=== PATIENT | male | born 1985 | race Caucasian/White ===

== ENCOUNTER 2017-03-25 14:21 | Inpatient (IN) | payer SELFPAY ==
[2017-03-25 14:22] VITALS: BP 131/108; PULSE 76; RESP 18; TEMP 36.6; O2SAT 98; BMI 29.5
--- NOTE | 2017-03-25 15:12 | ED.RN ---
PT REPORTS THAT HE NOTICED INFECTION THIS AM. REDDENED AND SWOLLEN. PULSES PRESENT IN BOTH LEGS, STRONG. SENSATION PRESENT.
--- NOTE | 2017-03-25 15:21 | ED.RN ---
PT REQUESTS MEDICATION FOR PAIN. PT LETHARGIC BUT RESPONSIVE, KEEPS EYES CLOSED WHEN SPEAKING TO THIS RN. DR. CHEUNG INFORMED OF PT REQUEST. NO NEW ORDERS AT THIS TIME.
--- NOTE | 2017-03-25 15:22 | ED.DCSUM_ITS ---
- ER Visit Summary Date of Service: 03/25/17 Chief Complaint: Right leg pain History of Present Illness: The patient is a 31 M started with right leg pain 2 days ago. He noticed that it was red below the knee. Hurts to ambulate. He has not had a fever. No history of DVT. Physical Examination: Vital signs reviewed. He is slightly tachycardic. Right lower extremity exam reveals edema and redness below the knee. No tenderness along the deep venous system. His foot is spared with erythema. Test Results: White blood cell count normal. Lactate is pending Emergency Department Course and Treatment: Patient will be treated with Kefzol. I feel he requires admission to the extent of the cellulitis. I spoke with the admitting provider for admission Treatment Plan: [] Disposition: Right lower extremity cellulitis Impression: Admit This note was generated with [employer] dictation software. It may contain incorrect words, spelling, and punctuation that were not noted in review of the chart prior to signing ED Disposition - Plan for ED Patient: Chief Complaint: Cellulitis Referrals: Care Physician,No Primary [Primary Care Provider] -
[2017-03-25 15:31] LABS: Anion Gap 8 (5-15); BUN 5 mg/dL (7-18); BUN/Creat Ratio 6.9 RATIO (10-20); Calcium,Total 8.8 mg/dL (8.5-10.1); Chloride 100 mmol/L (98-107); Creatinine, Serum 0.73 mg/dL (0.70-1.30); EST Glomerular Filtration Rate 134 mL/min (>60); Est Glom Filt Rate - Afr Amer 162 mL/min (>60); Glucose 126 mg/dL (74-106); Potassium 3.3 mmol/L (3.5-5.1); Sodium Level 140 mmol/L (136-145)
[2017-03-25 15:36] LABS: Absolute Lymphocyte Count 1.51 X10^3/ul (0.83-4.51); Absolute Neutrophil Count 7.6 X10^3/uL (2.0-7.7); Basophil# 0.01 X10^3/uL; Basophil% 0.1 % (0-1); Eosinophil# 0.15 X10^3/uL; Eosinophils% 1.5 % (0-5); Hematocrit 40.8 % (40-54); Hemoglobin 13.6 g/dl (13.0-16.5); Lymphocyte # 1.51 X10^3/ul (4.0); Lymphocyte % 14.7 % (19-41); Mean Corp Hgb Conc 33.3 g/gl (32-36); Mean Corpuscular Hgb 28.5 pg (27.0-32.0); Mean Corpuscular Volume 85.5 fL (80-94); Mean Platelet Vol. 10.8 fl (6.2-12.0); Monocyte% 9.8 % (0-10); Neutrophil # 7.57 X10^3/uL (2.7-7.7); Neutrophil % 73.8 % (47-70); POSITIVE COUNT NO; POSITIVE DIFFERENTIAL NO; POSITIVE MORPHOLOGY NO; Platelet Count 267 K/mm3 (150-450); RBC Distribution Width CV 12.9 % (11.6-14.6); RBC Distribution Width SD 40.4 fl (35.1-43.9); Red Blood Count 4.77 M/mm3 (4.6-6.2); White Blood Count 10.3 K/mm3 (4.4-11.0)
[2017-03-25 15:58] LABS: Lactic Acid 1.9 mmol/L (0.4-2.0)
--- NOTE | 2017-03-25 16:24 | PCM.HP.STD ---
Problem List (1) Cellulitis of right leg Status: Acute (2) Altered mental status Status: Acute (3) Papulovesicular rash Status: Acute (4) Polysubstance (excluding opioids) dependence, daily use Status: Chronic History of Present Illness Date of Admission: 03/25/17 Chief Complaint: Right leg cellulitis and altered mental status The patient is a 31 year old M with no significant past medical history came to ER with right leg swelling from knee to ankle along with redness, pain and tenderness suggestive of cellulitis. I was called by ER physician to admit right leg cellulitis but when I saw the patient he was confused, very sleepy with occasional waking up on shaking, mild slurry and red conjunctiva. As per the nursing staff, he was fine before going to bathroom and then was semiconscious. 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 He has a erythematous rash over right leg but also papulovesicular rash on the right hand and forearm and 2 spots on the base of penis. [] Past Medical History Past Medical History (Chronic Problems): Chronic Problems Polysubstance (excluding opioids) dependence, daily use (Chronic) Allergies pertussis vaccine,adsorbed [Pertussis Vaccine,Adsorbed] Adverse Reaction (Verified 03/25/17 14:23) CONFUSED HAD A BABY, ACTED VERY DIFFERENT SPACEY Home Medications: Ambulatory Orders Medication Instructions Recorded NK [NK] 03/25/17 Smoking Status: Current every day smoker - *Family History Paternal History Items: Unknown Review of Systems Unable to obtain accurate/complete ROS d/t: Patient is very sleepy, lethargic and semi-consults VTE Information - Inpt Only VTE Present on Admission: No VTE Mechan Device Prophylaxis: SCD's VTE Pharm Prophylaxis ordered?: Yes Reason prophylaxis not ordered:: Procedure Not Indicated Patient Problems: Active and Suspected Problems Cellulitis of right leg (Acute) Altered mental status (Acute) Papulovesicular rash (Acute) - Physical Exam General: Alert, Oriented x3, Cooperative, Confused, Disoriented, Lethargic, - - Sleepy with occasional waking up on shaking HEENT: Atraumatic, PERRLA, EOMI, Normocephalic, - - Right conjunctiva Oral: Dry Mucosa Neck: Supple, No JVD, Negative Carotid Bruits Lungs: Clear to auscultation, No rhonchi, No wheeze, No rales, Diminished Cardiovascular: Regular rate, Regular Rhythm, Normal S1, Normal S2, No murmurs Abdomen: Bowel Sounds Present, Soft, Non Tender, Non-Distended Extremities: No edema, Capillary Refill Less than 3 Seconds Skin: Rash Present - erythematous rash over right leg but also papulovesicular rash on the right hand and forearm and 2-3 maculo-papular vesicular rash on the base of penis. [] Musculoskeletal: No Tenderness to Palpation of Joints or Extremities Neurological: Cranial nerves II-XII grossly intact Psych/Mental Status: Normal Affect, Appropriate Vital Signs Temp Pulse Resp BP Pulse Ox 97.8 F 76 18 131/108 H 98 03/25/17 14:22 03/25/17 14:22 03/25/17 14:22 03/25/17 14:22 03/25/17 14:22 Oxygen Delivery Method Room Air Weight: 217 lb 9.54 oz Body Mass Index (BMI) 29.5 Laboratory Tests Past 24 Hrs 03/25/17 03/25/17 03/25/17 15:07 15:07 15:07 WBC 10.3 RBC 4.77 Hgb 13.6 Hct 40.8 MCV 85.5 MCH 28.5 MCHC 33.3 RDW 12.9 RDW Differential 40.4 Plt Count 267 MPV 10.8 Immature Gran % (Auto) 0.100 Neut % (Auto) 73.8 H Lymph % (Auto) 14.7 L Hernando % (Auto) 9.8 Eos % (Auto) 1.5 Baso % (Auto) 0.1 Absolute Neuts (auto) 7.6 Absolute Lymphs (auto) 1.51 Total Counted Not Reportable Sodium 140 Potassium 3.3 L Chloride 100 Carbon Dioxide 32.0 Anion Gap 8 BUN 5 L Creatinine 0.73 Estim Creat Clear Calc 162.40 Est GFR (MDRD) Af Amer 162 Est GFR (MDRD) Non-Af 134 BUN/Creatinine Ratio 6.9 L Glucose 126 H Lactic Acid 1.9 Calcium 8.8 Assessment/Plan Active and Suspected Problems Cellulitis of right leg (Acute) Altered mental status (Acute) Papulovesicular rash (Acute) [] The patient is a 31 year old M with no significant past medical history came to ER with right leg swelling from knee to ankle along with redness, pain and tenderness suggestive of cellulitis. I was called by ER physician to admit right leg cellulitis but when I saw the patient he was confused, very sleepy with occasional waking up on shaking, mild slurry and red conjunctiva. As per the nursing staff, he was fine before going to bathroom and then was semiconscious. 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 He has a erythematous rash over right leg but also papulovesicular rash on the right hand and forearm and 2 spots on the base of penis. 1. Altered mental status/acute encephalopathy, etiology unclear but suspect substance/illicit drug use, infectious encephalopathy/viral fever or due to cellulitis: Patient is being admitted on the [facility] floor. U tox, serum alcohol, ESR, CRP ABG and CT head ordered. Discussed with infectious disease Dr. Vallejo and advised HIV, RPR, HSV DNA PCR and zoster IgM ordered. Blood cultures ?2. Wound swab from the vesicular rash for MRSA and HSV. Started empirically on IV vancomycin and Zosyn. 2. Right leg cellulitis from knee to ankle, infectious etiology unclear possible bacterial/tickborne/rickettsial: ID consult as mentioned above. Rest as mentioned above. Venous Doppler ordered. 3. Polysubstance use: Patient admitted that he smokes marijuana but refuses for crack cocaine, benzodiazepine or heroin. He had used heroin in the past. [facility] consult. 4. DVT prophylaxis: On Lovenox 40 mg subcu daily. This note was generated with [email or web address] dictation software. Every effort was made to ensure accuracy, however computerized financial services professional mistakes may persist. Code Visit Inpatient E&M: 25255 Init Hosp L3
[2017-03-25 16:30] VITALS: BP 132/77; PULSE 76; RESP 15; O2SAT 98
[2017-03-25 16:31] VITALS: BMI 29.5
[2017-03-25] MEDS: Cefazolin 1 GM/50 ML BAG IV (16:35)
--- NOTE | 2017-03-25 17:01 | CT_ITS ---
STUDY: CT BRAIN WITHOUT CONTRAST REASON FOR EXAM: Male, 31 years old. Altered mental status and right leg edema. RADIATION DOSAGE (If Supplied By Facility): CTDIvol = ( 44.99 ) mGy, DLP = ( 829.85 ) mGycm TECHNIQUE: Transaxial CT imaging of the brain was performed without administration of intravenous contrast material. Individualized dose optimization techniques were used for this CT. COMPARISON: None. FINDINGS: Normal soft tissue structures. Normal calvarium. There is mild cerebral atrophy with widening of the extra-axial spaces and ventricular dilatation. Normal white matter tracts of the cerebral hemispheres. Normal basal ganglia and thalami. Normal brainstem. Normal cerebellum. There is no intracranial hemorrhage. There are no findings of an acute ischemic infarction. Moderate areas of mucosal thickening in the inferior right maxillary sinus. CT/Brain/Head without Contrast IMPRESSION: No acute intracranial findings. Negative for hemorrhage, hematoma or mass density. Negative for demarcation of a new infarct zone. Mild atrophy for age. Moderate areas of mucosal thickening in the inferior right maxillary sinus. Normal skull. Electronically Signed: Anita Cobb MD at 18:21 EST , Service support ,
[2017-03-25 17:15] VITALS: BMI 28.3
[2017-03-25 18:01] VITALS: BP 130/74; PULSE 111; RESP 16; TEMP 36.9; O2SAT 99
[2017-03-25] MEDS: Naloxone 0.4 MG/ML Syringe IV (18:10)
[2017-03-25 18:11] LABS: Allen Test POS; Base Excess 8 mmol/L (-2 to +2); Blood Gas Specimen Type ART; O2 Delivery Device Room Air; PO2 76 mmHG (75-100); SITE R Brachial; SO2 95 % (95-99); Time Given 1805; Total Carbon Dioxide 33 mmol/L; pCO2 47.2 mmHg (35-45); pH 7.44 (7.35-7.45)
[2017-03-25 18:24] LABS: Prothrombin Time (Protime)PT. 13.2 SECONDS (11.7-14.9)
[2017-03-25 18:25] LABS: Partial Thromboplast Time 40.5 Seconds (24.1-36.2)
[2017-03-25 18:34] LABS: AST(SGOT) 67 U/L (15-37); Alanine Aminotransfer ALT/SGPT 122 U/L (16-61); Albumin, Serum 2.8 g/dL (3.2-5.0); Alkaline Phosphatase 100 U/L (45-117); Bilirubin, Direct 0.09 mg/dL (0.00-0.30); Globulin 3.5 g/dL (2.2-4.2); Protein, Total 6.3 g/dL (6.4-8.2)
[2017-03-25 18:35] LABS: Erythrocyte Sedimentation Rate 18 mm/hr (0-15)
[2017-03-25 18:44] LABS: Amphetamine Urine VISTA POSITIVE (<1000 ng/mL); Barbiturate Urine VISTA NEGATIVE (< 200 ng/mL); Benzodiazepine Urine VISTA NEGATIVE (< 200 ng/mL); Cocaine Urine VISTA NEGATIVE (< 300 ng/mL); Ecstacy Urine VISTA POSITIVE (< 500 ng/mL); Methadone Urine VISTA NEGATIVE (< 300 ng/mL); PCP Urine VISTA NEGATIVE (< 25 ng/mL); THC Urine VISTA NEGATIVE (< 50 ng/mL); Vista UDS pH Range 7
[2017-03-25 18:47] LABS: Alcohol, Blood (Medical)-Serum < 3.0 mg/dL
[2017-03-25] MEDS: 0.9% Normal Saline 1,000 ML 150 ML IV (19:49)
[2017-03-25 19:51] LABS: HIV - WCH Non-Reactive (Nonreactive)
[2017-03-25 19:56] VITALS: BP 126/76; PULSE 97; RESP 16; TEMP 37.1; O2SAT 98
[2017-03-25 20:17] LABS: M R Staph aureus DNA By PCR Negative (Negative); Probe Check PASS; Specimen Processing Control PASS; Staph aureus DNA By PCR NEGATIVE (Negative)
[2017-03-25] MEDS: Acyclovir 750 MG in Dextrose 5% 250 ML 256 MG IV (22:47)
[2017-03-26] MEDS: Piperacil/Tazobactam 3.375 GM/50 ML ML IV ×4 (00:15→21:24)
[2017-03-26 02:47] VITALS: BP 117/70; PULSE 85; RESP 16; TEMP 36.6; O2SAT 100
[2017-03-26] MEDS: Acyclovir 750 MG in Dextrose 5% 250 ML 256 MG IV ×3 (06:21→21:23)
--- NOTE | 2017-03-26 09:24 | PCM.PN.HOSP ---
Patient Problems: Active and Suspected Problems Cellulitis of right leg (Acute) Altered mental status (Acute) Papulovesicular rash (Acute) Subjective: Patient with no acute events per night per self however per review of nursing notes patient upon admission with suspected drug abuse while in the emergency room as mental status had declined following initial ED evaluation with lethargy as well as slurred speech with UDS remarkable admitted ongoing drug usage per patient. Reviewed current status with patient and he does admit to unprotected sex as possible etiology for penile lesions more consistent with warts and denies any LE scratching, even while on drugs. He notes ongoing discomfort to the RLE but otherwise no complaints. Patient denies fevers, chills, nausea, emesis, abdominal pain, chest pain or dyspnea. Objective: Physical Examination: General: awake, alert, oriented x 3 and cooperative, seated upright in bed in no apparent distress. Skin: normal color, turgor, no icterus, cyanosis except several extremity tattoos, per-penile bases lesions, appears more consistent with genital warts, RLE w/ no obvious blisters or lesions, scratches noted, erythema from ankle to mid calf, receding from outline marked prior, TTP, warm to touch. HEENT: AT/NC, EOMI, PERRLA, MMM. Lungs: CTA bilaterally, moderate effort, mild decrease BL bases, no rales, ronchi or wheezing. Heart: regular rate and rhythm; no gallop, rub audible. Abdomen: soft, NTTP, ND, normal BS. Extremities: no cyanosis, clubbing, see skin, RLE w/ mild edema. Neurological: patient awake, alert, oriented x 3; cognitive function intact; pupils equally reactive to light and accomodation; cranial nerves II-XII grossly normal, moving all 4 extremities, no focal deficits, strength mildly globally decreased secondary to acute presentation. Psychiatric: affect appears normal, no acute evidence of depressive or anxiety feelings. Vitals/I&O's: Vital Signs Temp Pulse Resp BP Pulse Ox 98 F 85 16 117/70 100 03/26/17 02:47 03/26/17 02:47 03/26/17 02:47 03/26/17 02:47 03/26/17 02:47 Oxygen Delivery Method Room Air Weight: 208 lb 15.971 oz Body Mass Index (BMI) 28.3 Intake and Output for Last 24 Hours 03/24/17 03/25/17 03/26/17 23:59 23:59 23:59 Intake Total 2675 / 2675 Output Total 850 / 850 Balance 1825 / 1825 Laboratory Results 03/25/17 18:04: Specimen Type ART, Sample Site R Brachial, pH 7.44, Bicarbonate Actual 32.0 H, POC Total CO2 33, Base Excess 8 H, O2 Saturation 95, ABG pCO2 47.2 H, ABG pO2 76, Sorin Test POS, O2 Delivery Device Room Air, Blood Gas Notified Whom [facility] , Blood Gas Notified Time 1805 03/25/17 18:05: Ethyl Alcohol < 3.0 03/25/17 18:05: ESR 18 H 03/25/17 18:05: PT 13.2, INR 1.0, APTT 40.5 H 03/25/17 18:05: Total Bilirubin 0.30, Direct Bilirubin 0.09, AST 67 H, ALT 122 H, Alkaline Phosphatase 100, C-React Prot Ext Range 89.20 H, Total Protein 6.3 L, Albumin 2.8 L, Globulin 3.5 03/25/17 18:05: HIV 1&2 Antibody Non-Reactive 03/25/17 18:05: RPR Pending 03/25/17 18:15: Urine Opiates Screen POSITIVE H, Urine Methadone Screen NEGATIVE, Ur Barbiturates Screen NEGATIVE, Ur Phencyclidine Scrn NEGATIVE, Ur Amphetamines Screen POSITIVE H, U Methamphetamin-MDMA POSITIVE H, U Benzodiazepines Scrn NEGATIVE, Urine Cocaine Screen NEGATIVE, U Cannabinoids Screen NEGATIVE, Ur Drug Screen Comment 03/25/17 18:20: S.aureus Protein A PCR NEGATIVE, MRSA (PCR) Negative Current Medications Acetaminophen (Tylenol) 650 mg PO Q6H PRN PRN PRN Reason: Mild Pain (scale 0-3)/T>100.7 Bisacodyl (Dulcolax) 10 mg RECTAL DAILY PRN PRN PRN Reason: Constipation Docusate Sodium (Colace) 200 mg PO BID PRN PRN PRN Reason: Constipation Sodium Chloride () 1,000 mls @ 150 mls/hr IV .Q6H40M OLYA Last Admin: 03/26/17 07:42 Dose: Not Given Piperacillin Sod/Tazobactam Sod (Zosyn) 3.375 gm in 50 mls @ 12.5 mls/hr IV Q8 [facility] Last Admin: 03/26/17 06:20 Dose: 12.5 mls/hr Vancomycin HCl 1,500 mg/ (Sodium Chloride) 530 mls @ 250 mls/hr IV Q8H [facility] Last Admin: 03/26/17 03:37 Dose: 250 mls/hr Acyclovir Sodium 750 mg/ (Dextrose) 265 mls @ 256 mls/hr IV Q8 [facility] Last Admin: 03/26/17 06:21 Dose: 256 mls/hr Ondansetron HCl (Zofran) 4 mg IV Q8H PRN PRN PRN Reason: Nausea Oxycodone HCl (Oxyir) 5 mg PO Q4H PRN PRN PRN Reason: Moderate Pain (pain scale 4-5) Sodium Chloride () 5 - 30 ml IV UD PRN PRN Reason: SALINE FLUSH Assessment/Plan Active and Suspected Problems Cellulitis of right leg (Acute) Altered mental status (Acute) Papulovesicular rash (Acute) The patient is a 31 y/o M w/ PMHx: Polysubstance Abuse, Tobacco use who presents to the [facility] ED on 03/25/17 with history of onset RLE edema, redness, pain with onset over the last 24-48 hours although timeline unclear with patient ED evaluation initially appropriate and following visit to restroom onset sluggish sedate behavior with suspected drug usage while in the ED with notable UDS. (1) RLE Extremity Cellulitis: Given polysubstance abuse history and possible vesicles upon initial presentation, ID consulted, maintained on IV vanc, zosyn and acyclovir pending cultures, plan repeat CBC in AM, continue affected extremity elevation above heart when seated and in bed, monitor erythema outline with VS checks, RLE DVT US obtained and preliminary read negative for acute DVT. CRP 89.20. (2) Penile Lesions and LUE ? Vesicular Lesions, Unclear Specific Etiology: Notes unsafe sexual practices, lesions per report cultured although upon re-examination appear more consistent with warts, LUE HSV culture pending as well as LUE wound culture, preliminary without growth, final pending. Maintained as noted on BSA w/ IV vanc, zosyn and acyclovir until cultures result per ID recommendation. HIV NR. RPR, HSV and VZV pending. MRSA, Staph negative on LUE culture. CRP 89.20. (3) Hyperglycemia: Admission glucose 126, likely stress, HgbA1c obtained, 5.4%. (4) Tobacco Abuse: Encouraged cessation, inpatient consultation per RT, NR if desired. (5) Polysubstance Abuse, IVDA Hx: HIV NR, RPR pending, will add hepatitis panel. Encouraged clean status. UDS notable upon admission w/ opiates, amphetamines, methamphetamines. (6) DVT Prophylaxis: TEDs, low risk, ambulation. Code Visit Inpatient E&M: 86291 Subs Hosp L2
[2017-03-26] MEDS: 0.9% Normal Saline 1,000 ML 150 ML IV (09:54)
[2017-03-26 10:00] VITALS: BP 137/79; PULSE 97; RESP 16; TEMP 36.8; O2SAT 99
--- NOTE | 2017-03-26 10:01 | VDLE_ITS ---
Reason For Study: RLE Swelling RIGHT GSV is normal. CFV is compressible, spontaneous, phasic, competent and demonstrates normal augmentation. FV is compressible, spontaneous, phasic, competent and demonstrates normal augmentation. POP V is compressible, spontaneous, phasic, competent and demonstrates normal augmentation. T/P Trunk is compressible. PTV is compressible. RT PerV is compressible. Procedure Exam performed portable in patient room. A preliminary report was called and/or faxed to Alejandra ALMAGUER. Interpretation Summary Deep veins of the right lower extremity are patent and compressible segmentally. There is no evidence of right lower extremity deep vein thrombosis. Valvular competence appears intact within the proximal deep venous system on the right . The right greater saphenous vein appears patent and compressible segmentally. Ordering Physician: Keila Corona Performed By: Alexia Munguia, RONNY, RVT
[2017-03-26 11:36] LABS: Hemoglobin A1c 5.4 % (4.2-6.3)
[2017-03-26 11:52] LABS: Vancomycin, Trough Level 8.1 ug/mL (5.0-15.0)
[2017-03-26 14:20] VITALS: BP 143/79; PULSE 94; RESP 16; TEMP 36.7; O2SAT 98
[2017-03-26] MEDS: Acetaminophen 325 MG Tablet 650 MG PO (14:25)
--- NOTE | 2017-03-26 14:38 | CASEMGMT ---
Referral received d/t pt's self-pay status. Met with pt and introduced self, role, and purpose of visit. Pt voiced belief that he may have health coverage through [employer] or something. When asked whether pt had applied for coverage under the [employer], he was uncertain but expressed he thought perhaps he had. He denied taking any routine prescription medications and was unable to say whether any recent prescriptions had been filled with a prescription drug benefit. 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 He refused this worker's offer to contact [employer] on his behalf to clarify his insurance status. He denied any needs from this worker and asked when he could go home. Explained that at this time discharge has not yet been ordered. Pt was noted with restlessness during this worker's visit AEB: frequent position changes, taking off and replacing a knit cap on his head, no eye contact. Again attempted to identify with pt any homegoing needs; pt denied.
[2017-03-26 21:16] VITALS: BP 116/55; PULSE 78; RESP 16; TEMP 36.8; O2SAT 98
[2017-03-27] MEDS: 0.9% Normal Saline 1,000 ML 150 ML IV ×3 (00:09→22:02)
[2017-03-27 03:00] VITALS: BP 130/73; PULSE 76; RESP 16; TEMP 36.8; O2SAT 100
[2017-03-27] MEDS: Acetaminophen 325 MG Tablet 650 MG PO ×3 (03:08→20:06)
[2017-03-27] MEDS: Acyclovir 750 MG in Dextrose 5% 250 ML 256 MG IV (06:01)
[2017-03-27] MEDS: Piperacil/Tazobactam 3.375 GM/50 ML ML IV ×3 (06:01→21:59)
[2017-03-27 06:59] LABS: Absolute Lymphocyte Count 1.54 X10^3/ul (0.83-4.51); Absolute Neutrophil Count 5.9 X10^3/uL (2.0-7.7); Basophil# 0.02 X10^3/uL; Basophil% 0.2 % (0-1); Eosinophil# 0.16 X10^3/uL; Eosinophils% 1.9 % (0-5); Hemoglobin 14.2 g/dl (13.0-16.5); Lymphocyte # 1.54 X10^3/ul (4.0); Lymphocyte % 18.1 % (19-41); Mean Corpuscular Hgb 28.6 pg (27.0-32.0); Mean Corpuscular Volume 86.5 fL (80-94); Mean Platelet Vol. 10.7 fl (6.2-12.0); Monocyte# 0.84 X10^3/uL; Monocyte% 9.9 % (0-10); Neutrophil # 5.92 X10^3/uL (2.7-7.7); Neutrophil % 69.5 % (47-70); Platelet Count 307 K/mm3 (150-450); RBC Distribution Width SD 41.3 fl (35.1-43.9); Red Blood Count 4.97 M/mm3 (4.6-6.2); White Blood Count 8.5 K/mm3 (4.4-11.0)
[2017-03-27 07:10] LABS: POSITIVE COUNT NO; POSITIVE DIFFERENTIAL NO; POSITIVE MORPHOLOGY NO
[2017-03-27 07:15] LABS: ALB/GLOB Ratio 0.8 RATIO (0.9-2.4); AST(SGOT) 68 U/L (15-37); Alanine Aminotransfer ALT/SGPT 126 U/L (16-61); Albumin, Serum 2.8 g/dL (3.2-5.0); Alkaline Phosphatase 97 U/L (45-117); Anion Gap 8 (5-15); BUN 3 mg/dL (7-18); BUN/Creat Ratio 4.5 RATIO (10-20); Calcium,Total 8.7 mg/dL (8.5-10.1); Chloride 103 mmol/L (98-107); Creatinine, Serum 0.66 mg/dL (0.70-1.30); EST Glomerular Filtration Rate 149 mL/min (>60); Est Glom Filt Rate - Afr Amer 180 mL/min (>60); Estimated Creatinine Clearance 179.63 ml/min; Globulin 3.3 g/dL (2.2-4.2); Glucose 97 mg/dL (74-106); Potassium 4.5 mmol/L (3.5-5.1); Protein, Total 6.1 g/dL (6.4-8.2); Sodium Level 140 mmol/L (136-145)
--- NOTE | 2017-03-27 08:20 | PCM.PN.HOSP ---
Patient Problems: Active and Suspected Problems Cellulitis of right leg (Acute) Altered mental status (Acute) Papulovesicular rash (Acute) Subjective: The patient is a 31 y/o M w/ PMHx: Polysubstance Abuse, Tobacco use who presents to the [facility] ED on 03/25/17 with history of onset RLE edema, redness, pain with onset over the last 24-48 hours although timeline unclear with patient ED evaluation initially appropriate and following visit to restroom onset sluggish sedate behavior with suspected drug usage while in the ED with notable UDS. Given polysubstance abuse history and possible vesicles upon initial presentation, ID consulted, maintained on IV vanc, zosyn and acyclovir pending cultures, plan repeat CBC in AM, continue affected extremity elevation above heart when seated and in bed, monitor erythema outline with VS checks, RLE DVT US obtained and preliminary read negative for acute DVT. CRP 89.20. 03/27/17 given shortage, transition to oral acyclovir with pending cultures, lower suspicion based on appearance of lesions, but to be cautious per ID recommendation will continue. Erythema to the RLE improved, but still present, continue aggressive BSA per ID recommendation with repeat ID evaluation in AM 03/28/17. 03/27/17 CRP and ESR pending to see if trending down. Penile Lesions and LUE ? Vesicular Lesions, Unclear Specific Etiology w/ noted unsafe sexual practices, lesions per report cultured although upon re-examination appear more consistent with warts, LUE HSV culture pending as well as LUE wound culture, preliminary without growth, final pending. Maintained as noted on BSA w/ IV vanc, zosyn and acyclovir until cultures result per ID recommendation. HIV NR. RPR, HSV and VZV pending. MRSA, Staph negative on LUE culture. Polysubstance Abuse, IVDA Hx w/ Elevated LFTs, Likely Chronic, AST/ALT 67/122-->03/27/17 AST/ALT 68/126, stable, likely chronic, pending hepatitis panel. Will obtain liver US additionally. Encouraged clean status. UDS notable upon admission w/ opiates, amphetamines, methamphetamines. Patient with no acute events overnight per self and per nursing report. Patient continues to have discomfort to the right lower extremity and erythema although this is improved since initial presentation. Original lesions on the left upper extremity that were cultured and noted to initially be vesicular appearing are crusted over and do not appear consistent with a herpetic lesion however these cultures are still pending. Discussed plan with patient and given blood culture still pending, continue erythema to the right leg although improving continued on broad-spectrum antibiotic therapy as well as antivirals per infectious disease recommendation. DVT ultrasound obtained today prior to the right lower extremity and preliminary read negative for thrombosis. Per patient following hospitalization will be going to senior care. Patient denies fevers, chills, nausea, emesis, abdominal pain, chest pain or dyspnea. Objective: Physical Examination: General: awake, alert, oriented x 3 and cooperative, seated upright in bed in no apparent distress. Skin: normal color, turgor, no icterus, cyanosis except several extremity tattoos, per-penile bases lesions, appears more consistent with genital warts, RLE w/ no obvious blisters or lesions, scratches noted, erythema from ankle to mid calf, receding from outline marked prior but still present and still warm as well as tender upon palpation, no purulent drainage onset from any of the abrasions on the RLE, lesions which were noted vesicular to the LUE forearm healing, not yellow crusting present. HEENT: AT/NC, EOMI, PERRLA, MMM. Lungs: CTA bilaterally, moderate effort, mild decrease BL bases, no rales, ronchi or wheezing. Heart: regular rate and rhythm; no gallop, rub audible. Abdomen: soft, NTTP, ND, normal BS. Extremities: no cyanosis, clubbing, see skin, RLE w/ mild edema. Neurological: patient awake, alert, oriented x 3; cognitive function intact; pupils equally reactive to light and accomodation; cranial nerves II-XII grossly normal, moving all 4 extremities, no focal deficits, strength improved, mildly globally decreased secondary to acute presentation. Psychiatric: affect appears normal, no acute evidence of depressive or anxiety feelings. Vitals/I&O's: Vital Signs Temp Pulse Resp BP Pulse Ox 98.2 F 76 16 130/73 H 100 03/27/17 03:00 03/27/17 03:00 03/27/17 03:00 03/27/17 03:00 03/27/17 03:00 Oxygen Delivery Method Room Air Weight: 208 lb 15.971 oz Body Mass Index (BMI) 28.3 Intake and Output for Last 24 Hours 03/25/17 03/26/17 03/27/17 23:59 23:59 23:59 Intake Total 6393 / 6393 3389 / 3389 Output Total 4000 / 4000 1999 / 1999 Balance 2393 / 2393 1389 / 1389 Microbiology Past 72 Hours 03/25/17 18:20 Wound - Arm Left Gram Stain - Final 03/25/17 18:20 Wound - Arm Left Wound Culture - Preliminary No growth-Final to follow Laboratory Results 03/26/17 10:30: Hemoglobin A1c 5.4 03/26/17 10:30: Herpes Simplex Culture Pending, HSV I DNA PCR Pending, HSV II DNA PCR Pending, HSV Final Result Pending, VZV IgM Antibody Pending 03/26/17 10:30: Vancomycin Trough 8.1 03/27/17 05:45: Hemoglobin A1c Pending 03/27/17 05:45: Hepatitis A IgM Ab Pending, Hepatitis A Ab Total Pending, Hep Bs Antigen Pending, Hep B Core Total Ab Pending, Hep B Core IgM Ab Pending, Hepatitis C Comment Pending 03/27/17 05:45: WBC 8.5, RBC 4.97, Hgb 14.2, Hct 43.0, MCV 86.5, MCH 28.6, MCHC 33.0, RDW 13.0, RDW Differential 41.3, Plt Count 307, MPV 10.7, Immature Gran % (Auto) 0.400, Neut % (Auto) 69.5, Lymph % (Auto) 18.1 L, [place] % (Auto) 9.9, Eos % (Auto) 1.9, Baso % (Auto) 0.2, Absolute Neuts (auto) 5.9, Absolute Lymphs (auto) 1.54, Total Counted Not Reportable 03/27/17 05:45: Sodium 140, Potassium 4.5, Chloride 103, Carbon Dioxide 29.0, Anion Gap 8, BUN 3 L, Creatinine 0.66 L, Estim Creat Clear Calc 179.63, Est GFR (MDRD) Af Amer 180, Est GFR (MDRD) Non-Af 149, BUN/Creatinine Ratio 4.5 L, Glucose 97, Calcium 8.7, Total Bilirubin 0.30, AST 68 H, ALT 126 H, Alkaline Phosphatase 97, Total Protein 6.1 L, Albumin 2.8 L, Globulin 3.3, Albumin/Globulin Ratio 0.8 L Current Medications Acetaminophen (Tylenol) 650 mg PO Q6H PRN PRN PRN Reason: Mild Pain (scale 0-3)/T>100.7 Last Admin: 03/27/17 03:08 Dose: 650 mg Acyclovir (Zovirax) 400 mg PO 5X/DAY [facility] Bisacodyl (Dulcolax) 10 mg RECTAL DAILY PRN PRN PRN Reason: Constipation Docusate Sodium (Colace) 200 mg PO BID PRN PRN PRN Reason: Constipation Sodium Chloride () 1,000 mls @ 150 mls/hr IV .Q6H40M [facility] Last Admin: 03/27/17 00:09 Dose: 150 mls/hr Piperacillin Sod/Tazobactam Sod (Zosyn) 3.375 gm in 50 mls @ 12.5 mls/hr IV Q8 [facility] Last Admin: 03/27/17 06:01 Dose: 12.5 mls/hr Vancomycin HCl 1,500 mg/ (Sodium Chloride) 530 mls @ 250 mls/hr IV Q8H [facility] Last Admin: 03/27/17 02:59 Dose: 250 mls/hr Ondansetron HCl (Zofran) 4 mg IV Q8H PRN PRN PRN Reason: Nausea Oxycodone HCl (Oxyir) 5 mg PO Q4H PRN PRN PRN Reason: Moderate Pain (pain scale 4-5) Sodium Chloride () 5 - 30 ml IV UD PRN PRN Reason: SALINE FLUSH Assessment/Plan Active and Suspected Problems Cellulitis of right leg (Acute) Altered mental status (Acute) Papulovesicular rash (Acute) The patient is a 31 y/o M w/ PMHx: Polysubstance Abuse, Tobacco use who presents to the [facility] ED on 03/25/17 with history of onset RLE edema, redness, pain with onset over the last 24-48 hours although timeline unclear with patient ED evaluation initially appropriate and following visit to restroom onset sluggish sedate behavior with suspected drug usage while in the ED with notable UDS. (1) RLE Extremity Cellulitis: Given polysubstance abuse history and possible vesicles upon initial presentation, ID consulted, maintained on IV vanc, zosyn and acyclovir pending cultures, plan repeat CBC in AM, continue affected extremity elevation above heart when seated and in bed, monitor erythema outline with VS checks, RLE DVT US obtained and preliminary read negative for acute DVT. CRP 89.20. 03/27/17 given shortage, transition to oral acyclovir with pending cultures, lower suspicion based on appearance of lesions, but to be cautious per ID recommendation will continue. Erythema to the RLE improved, but still present, continue aggressive BSA per ID recommendation with repeat ID evaluation in AM 03/28/17. 03/27/17 CRP and ESR pending to see if trending down. (2) Penile Lesions and LUE ? Vesicular Lesions, Unclear Specific Etiology: Notes unsafe sexual practices, lesions per report cultured although upon re-examination appear more consistent with warts, LUE HSV culture pending as well as LUE wound culture, preliminary without growth, final pending. Maintained as noted on BSA w/ IV vanc, zosyn and acyclovir until cultures result per ID recommendation. HIV NR. RPR, HSV and VZV pending. MRSA, Staph negative on LUE culture. CRP 89.20. (3) Hyperglycemia: Admission glucose 126, likely stress, HgbA1c obtained, 5.4%. (4) Tobacco Abuse: Encouraged cessation, inpatient consultation per RT, NR if desired. (5) Polysubstance Abuse, IVDA Hx w/ Elevated LFTs, Likely Chronic: HIV NR, RPR pending, AST/ALT 67/122-->03/27/17 AST/ALT 68/126, stable, likely chronic, pending hepatitis panel. Will obtain liver US additionally. Encouraged clean status. UDS notable upon admission w/ opiates, amphetamines, methamphetamines. (6) DVT Prophylaxis: TEDs, low risk, ambulation. Code Visit Inpatient E&M: 82290 Subs Hosp L2
--- NOTE | 2017-03-27 08:27 | PN_ITS ---
Patient Problems: Active and Suspected Problems Cellulitis of right leg (Acute) Altered mental status (Acute) Papulovesicular rash (Acute) Subjective: The patient is a 31 y/o M w/ PMHx: Polysubstance Abuse, Tobacco use who presents to the [facility] ED on 03/25/17 with history of onset RLE edema, redness, pain with onset over the last 24-48 hours although timeline unclear with patient ED evaluation initially appropriate and following visit to restroom onset sluggish sedate behavior with suspected drug usage while in the ED with notable UDS. Given polysubstance abuse history and possible vesicles upon initial presentation, ID consulted, maintained on IV vanc, zosyn and acyclovir pending cultures, plan repeat CBC in AM, continue affected extremity elevation above heart when seated and in bed, monitor erythema outline with VS checks, RLE DVT US obtained and preliminary read negative for acute DVT. CRP 89.20. 03/27/17 given shortage, transition to oral acyclovir with pending cultures, lower suspicion based on appearance of lesions, but to be cautious per ID recommendation will continue. Erythema to the RLE improved, but still present, continue aggressive BSA per ID recommendation with repeat ID evaluation in AM 03/28/17. 03/27/17 CRP and ESR pending to see if trending down. Penile Lesions and LUE ? Vesicular Lesions, Unclear Specific Etiology w/ noted unsafe sexual practices, lesions per report cultured although upon re-examination appear more consistent with warts, LUE HSV culture pending as well as LUE wound culture, preliminary without growth, final pending. Maintained as noted on BSA w/ IV vanc , zosyn and acyclovir until cultures result per ID recommendation. HIV NR. RPR, HSV and VZV pending. MRSA, Staph negative on LUE culture. Polysubstance Abuse, IVDA Hx w/ Elevated LFTs, Likely Chronic, AST/ALT 67/122-->03/27/17 AST/ALT 68/126 , stable, likely chronic, pending hepatitis panel. Will obtain liver US additionally. Encouraged clean status. UDS notable upon admission w/ opiates, amphetamines, methamphetamines. Patient with no acute events overnight per self and per nursing report. Patient continues to have discomfort to the right lower extremity and erythema although this is improved since initial presentation. Original lesions on the left upper extremity that were cultured and noted to initially be vesicular appearing are crusted over and do not appear consistent with a herpetic lesion however these cultures are still pending. Discussed plan with patient and given blood culture still pending, continue erythema to the right leg although improving continued on broad-spectrum antibiotic therapy as well as antivirals per infectious disease recommendation. DVT ultrasound obtained today prior to the right lower extremity and preliminary read negative for thrombosis. Per patient following hospitalization will be going to skilled nursing. Patient denies fevers, chills, nausea, emesis, abdominal pain, chest pain or dyspnea. Objective: Physical Examination: General: awake, alert, oriented x 3 and cooperative, seated upright in bed in no apparent distress. Skin: normal color, turgor, no icterus, cyanosis except several extremity tattoos, per-penile bases lesions, appears more consistent with genital warts, RLE w/ no obvious blisters or lesions, scratches noted, erythema from ankle to mid calf, receding from outline marked prior but still present and still warm as well as tender upon palpation, no purulent drainage onset from any of the abrasions on the RLE, lesions which were noted vesicular to the LUE forearm healing, not yellow crusting present. HEENT: AT/NC, EOMI, PERRLA, MMM. Lungs: CTA bilaterally, moderate effort, mild decrease BL bases, no rales, ronchi or wheezing. Heart: regular rate and rhythm; no gallop, rub audible. Abdomen: soft, NTTP, ND, normal BS. Extremities: no cyanosis, clubbing, see skin, RLE w/ mild edema. Neurological: patient awake, alert, oriented x 3; cognitive function intact; pupils equally reactive to light and accomodation; cranial nerves II-XII grossly normal, moving all 4 extremities, no focal deficits, strength improved, mildly globally decreased secondary to acute presentation. Psychiatric: affect appears normal, no acute evidence of depressive or anxiety feelings. Vitals/I&O's: Vital Signs Temp Pulse Resp BP Pulse Ox 98.2 F 76 16 130/73 H 100 03/27/17 03:00 03/27/17 03:00 03/27/17 03:00 03/27/17 03:00 03/27/17 03:00 Oxygen Delivery Method Room Air Weight: 208 lb 15.971 oz Body Mass Index (BMI) 28.3 Intake and Output for Last 24 Hours 03/25/17 03/26/17 03/27/17 23:59 23:59 23:59 Intake Total 6393 / 6393 3389 / 3389 Output Total 4000 / 4000 1999 / 1999 Balance 2393 / 2393 1389 / 1389 Microbiology Past 72 Hours 03/25/17 18:20 Wound - Arm Left Gram Stain - Final 03/25/17 18:20 Wound - Arm Left Wound Culture - Preliminary No growth-Final to follow Laboratory Results 03/26/17 10:30: Hemoglobin A1c 5.4 03/26/17 10:30: Herpes Simplex Culture Pending, HSV I DNA PCR Pending, HSV II DNA PCR Pending, HSV Final Result Pending, VZV IgM Antibody Pending 03/26/17 10:30: Vancomycin Trough 8.1 03/27/17 05:45: Hemoglobin A1c Pending 03/27/17 05:45: Hepatitis A IgM Ab Pending, Hepatitis A Ab Total Pending, Hep Bs Antigen Pending, Hep B Core Total Ab Pending, Hep B Core IgM Ab Pending, Hepatitis C Comment Pending 03/27/17 05:45: WBC 8.5, RBC 4.97, Hgb 14.2, Hct 43.0, MCV 86.5, MCH 28.6, MCHC 33.0, RDW 13.0, RDW Differential 41.3, Plt Count 307, MPV 10.7, Immature Gran % (Auto) 0.400, Neut % (Auto) 69.5, Lymph % (Auto) 18.1 L, [place] % (Auto) 9.9, Eos % (Auto) 1.9, Baso % (Auto) 0.2, Absolute Neuts (auto) 5.9, Absolute Lymphs ( auto) 1.54, Total Counted Not Reportable 03/27/17 05:45: Sodium 140, Potassium 4.5, Chloride 103, Carbon Dioxide 29.0, Anion Gap 8, BUN 3 L, Creatinine 0.66 L, Estim Creat Clear Calc 179.63, Est GFR (MDRD) Af Amer 180, Est GFR (MDRD) Non-Af 149, BUN/Creatinine Ratio 4.5 L, Glucose 97, Calcium 8.7, Total Bilirubin 0.30, AST 68 H, ALT 126 H, Alkaline Phosphatase 97, Total Protein 6.1 L, Albumin 2.8 L, Globulin 3.3, Albumin/ Globulin Ratio 0.8 L Current Medications Acetaminophen (Tylenol) 650 mg PO Q6H PRN PRN PRN Reason: Mild Pain (scale 0-3)/T>100.7 Last Admin: 03/27/17 03:08 Dose: 650 mg Acyclovir (Zovirax) 400 mg PO 5X/DAY [facility] Bisacodyl (Dulcolax) 10 mg RECTAL DAILY PRN PRN PRN Reason: Constipation Docusate Sodium (Colace) 200 mg PO BID PRN PRN PRN Reason: Constipation Sodium Chloride () 1,000 mls @ 150 mls/hr IV .Q6H40M [facility] Last Admin: 03/27/17 00:09 Dose: 150 mls/hr Piperacillin Sod/Tazobactam Sod (Zosyn) 3.375 gm in 50 mls @ 12.5 mls/hr IV Q8 [facility] Last Admin: 03/27/17 06:01 Dose: 12.5 mls/hr Vancomycin HCl 1,500 mg/ (Sodium Chloride) 530 mls @ 250 mls/hr IV Q8H [facility] Last Admin: 03/27/17 02:59 Dose: 250 mls/hr Ondansetron HCl (Zofran) 4 mg IV Q8H PRN PRN PRN Reason: Nausea Oxycodone HCl (Oxyir) 5 mg PO Q4H PRN PRN PRN Reason: Moderate Pain (pain scale 4-5) Sodium Chloride () 5 - 30 ml IV UD PRN PRN Reason: SALINE FLUSH Assessment/Plan Active and Suspected Problems Cellulitis of right leg (Acute) Altered mental status (Acute) Papulovesicular rash (Acute) The patient is a 31 y/o M w/ PMHx: Polysubstance Abuse, Tobacco use who presents to the [facility] ED on 03/25/17 with history of onset RLE edema, redness, pain with onset over the last 24-48 hours although timeline unclear with patient ED evaluation initially appropriate and following visit to restroom onset sluggish sedate behavior with suspected drug usage while in the ED with notable UDS. (1) RLE Extremity Cellulitis: Given polysubstance abuse history and possible vesicles upon initial presentation, ID consulted, maintained on IV vanc, zosyn and acyclovir pending cultures, plan repeat CBC in AM, continue affected extremity elevation above heart when seated and in bed, monitor erythema outline with VS checks, RLE DVT US obtained and preliminary read negative for acute DVT. CRP 89.20. 03/27/17 given shortage, transition to oral acyclovir with pending cultures, lower suspicion based on appearance of lesions, but to be cautious per ID recommendation will continue. Erythema to the RLE improved, but still present, continue aggressive BSA per ID recommendation with repeat ID evaluation in AM 03/28/17. 03/27/17 CRP and ESR pending to see if trending down. (2) Penile Lesions and LUE ? Vesicular Lesions, Unclear Specific Etiology: Notes unsafe sexual practices, lesions per report cultured although upon re- examination appear more consistent with warts, LUE HSV culture pending as well as LUE wound culture, preliminary without growth, final pending. Maintained as noted on BSA w/ IV vanc, zosyn and acyclovir until cultures result per ID recommendation. HIV NR. RPR, HSV and VZV pending. MRSA, Staph negative on LUE culture. CRP 89.20. (3) Hyperglycemia: Admission glucose 126, likely stress, HgbA1c obtained, 5.4%. (4) Tobacco Abuse: Encouraged cessation, inpatient consultation per RT, NR if desired. (5) Polysubstance Abuse, IVDA Hx w/ Elevated LFTs, Likely Chronic: HIV NR, RPR pending, AST/ALT 67/122-->03/27/17 AST/ALT 68/126, stable, likely chronic, pending hepatitis panel. Will obtain liver US additionally. Encouraged clean status. UDS notable upon admission w/ opiates, amphetamines, methamphetamines. (6) DVT Prophylaxis: TEDs, low risk, ambulation. Code Visit Inpatient E&M: 14316 Subs Hosp L2
[2017-03-27 08:52] LABS: Hemoglobin A1c 5.4 % (4.2-6.3)
[2017-03-27 09:00] VITALS: BP 128/76; PULSE 71; RESP 20; TEMP 36.6; O2SAT 100
[2017-03-27] MEDS: Acyclovir 200 MG Capsule 400 MG PO ×4 (09:57→21:59)
[2017-03-27 10:19] LABS: Erythrocyte Sedimentation Rate 22 mm/hr (0-15)
[2017-03-27 14:40] VITALS: BP 116/77; PULSE 95; RESP 20; TEMP 36.6; O2SAT 100
[2017-03-27 18:49] LABS: Vancomycin, Trough Level 14.2 ug/mL (5.0-15.0)
[2017-03-27 20:09] VITALS: BP 120/55; PULSE 78; RESP 18; TEMP 38.2; O2SAT 98
[2017-03-27 22:05] VITALS: TEMP 37.7
[2017-03-28] MEDS: 0.9% Normal Saline 1,000 ML 150 ML IV (02:16)
[2017-03-28 02:21] VITALS: BP 133/83; PULSE 70; RESP 18; TEMP 37.2; O2SAT 99
[2017-03-28] MEDS: Acyclovir 200 MG Capsule 400 MG PO ×2 (05:06→09:35)
[2017-03-28] MEDS: Piperacil/Tazobactam 3.375 GM/50 ML ML IV (05:07)
[2017-03-28 06:16] LABS: Absolute Lymphocyte Count 2.04 X10^3/ul (0.83-4.51); Absolute Neutrophil Count 7.4 X10^3/uL (2.0-7.7); Basophil# 0.02 X10^3/uL; Basophil% 0.2 % (0-1); Eosinophils% 1.9 % (0-5); Hematocrit 40.8 % (40-54); Hemoglobin 13.2 g/dl (13.0-16.5); Lymphocyte # 2.04 X10^3/ul (4.0); Lymphocyte % 19.6 % (19-41); Mean Corp Hgb Conc 32.4 g/gl (32-36); Mean Corpuscular Hgb 27.7 pg (27.0-32.0); Mean Corpuscular Volume 85.7 fL (80-94); Mean Platelet Vol. 10.3 fl (6.2-12.0); Monocyte# 0.66 X10^3/uL; Monocyte% 6.4 % (0-10); Neutrophil # 7.37 X10^3/uL (2.7-7.7); Neutrophil % 70.9 % (47-70); Platelet Count 325 K/mm3 (150-450); RBC Distribution Width CV 12.7 % (11.6-14.6); RBC Distribution Width SD 39.9 fl (35.1-43.9); Red Blood Count 4.76 M/mm3 (4.6-6.2); White Blood Count 10.4 K/mm3 (4.4-11.0)
[2017-03-28 06:22] LABS: POSITIVE COUNT NO; POSITIVE DIFFERENTIAL NO; POSITIVE MORPHOLOGY NO
[2017-03-28 06:26] LABS: ALB/GLOB Ratio 0.7 RATIO (0.9-2.4); AST(SGOT) 50 U/L (15-37); Alanine Aminotransfer ALT/SGPT 104 U/L (16-61); Albumin, Serum 2.5 g/dL (3.2-5.0); Alkaline Phosphatase 103 U/L (45-117); Anion Gap 9 (5-15); BUN 10 mg/dL (7-18); BUN/Creat Ratio 14.6 RATIO (10-20); Calcium,Total 8.2 mg/dL (8.5-10.1); Chloride 105 mmol/L (98-107); Creatinine, Serum 0.68 mg/dL (0.70-1.30); EST Glomerular Filtration Rate 144 mL/min (>60); Est Glom Filt Rate - Afr Amer 174 mL/min (>60); Estimated Creatinine Clearance 174.35 ml/min; Globulin 3.5 g/dL (2.2-4.2); Glucose 144 mg/dL (74-106); Potassium 3.6 mmol/L (3.5-5.1); Sodium Level 141 mmol/L (136-145)
[2017-03-28 08:20] VITALS: BP 123/63; PULSE 62; RESP 18; TEMP 36.2; O2SAT 98
--- NOTE | 2017-03-28 10:28 | NURSING ---
aware pt left AMA without signing paperwork, security notified including discription of patient as well as vehicle he was witnessed getting into. This nurse went into room to check about pt's belongings as known knife had been locked up in room, knife and epic interface analyst remains in drawer. Ivacs were running in room, had been unscrewed from loop. no IV cannulas or loops found in trash cans. Talked with primary RN aware he did not allow her to remove IV and she notified physician. Jacquard Plate Maker notified of above information, security aware pt has IV in as far as we know
--- NOTE | 2017-03-28 10:33 | NURSING ---
POT HOLDER BINDER NOTIFIED NURSE THAT PT IS AT [facility] WITH HIS 2 VISITORS WALKING OFF THE FLOOR. PT WAS APPROACHED WITH CAUTION THAT HE IS NOT DISCHARGED HE CONTINUES TO DISMISS NURSE. PT WAS TOLD HE NEEDS [facility]CR[facility]TS FOR HIS ATB FOR TREATMENT HE SAID I WILL CALL YOU GUYS . PT AND VISITORS ENTER THE [facility] AND LEFT. SPOKE TO [facility] DISPATCHER AT [facility] AND WAS NOTIFIED OF PT AMA .
--- NOTE | 2017-03-28 10:53 | CON.PCM_ITS ---
Problem List (1) Heroin use Status: Acute (2) Cellulitis of right leg Status: Acute Reason for Consult: cellulitis Consulted by: Dr. Ahuja History of Present Illness: The patient is a 31 year old M with h/o IVDU with heroin, in remission, who presented to ED 2/3 with several days of RLE swelling, pain and redness. 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 Had scab with redness on lateral R thigh and redness spread from there. No fever or chills, but pain got so bad he couldn't walk and came to ED. Denies any rash on arms. No purulence. No prior h/o MRSA or skin abscess. On presentation, some small papules noted at base of penis, no drainage from these or from his penis. Started on vanc/zosyn, redness much improved now, feeling much better. Full ROS performed and neg except as noted above. - Medical History Past Medical History (Chronic Problems): Chronic Problems Polysubstance (excluding opioids) dependence, daily use (Chronic) Allergies/Adverse Reactions: Allergies pertussis vaccine,adsorbed [Pertussis Vaccine,Adsorbed] Adverse Reaction ( Verified 03/25/17 14:23) CONFUSED HAD A BABY, ACTED VERY DIFFERENT SPACEY Home Medications: Ambulatory Orders Medication Instructions Recorded NK [NK] 03/25/17 - Social History SMOKING STATUS:: Current every day smoker Drug Use: heroin Vital Signs Temp Pulse Resp BP Pulse Ox 97.2 F L 62 18 123/63 H 98 03/28/17 08:20 03/28/17 08:20 03/28/17 08:20 03/28/17 08:20 03/28/17 08:20 Oxygen Delivery Method Room Air Weight: 94.8 kg Laboratory Tests Past 24 Hrs 03/27/17 03/28/17 03/28/17 18:09 05:40 05:40 WBC 10.4 RBC 4.76 Hgb 13.2 Hct 40.8 MCV 85.7 MCH 27.7 MCHC 32.4 RDW 12.7 RDW Differential 39.9 Plt Count 325 MPV 10.3 Immature Gran % (Auto) 1.000 H Neut % (Auto) 70.9 H Lymph % (Auto) 19.6 [place] % (Auto) 6.4 Eos % (Auto) 1.9 Baso % (Auto) 0.2 Absolute Neuts (auto) 7.4 Absolute Lymphs (auto) 2.04 Total Counted Not Reportable Sodium 141 Potassium 3.6 Chloride 105 Carbon Dioxide 27.0 Anion Gap 9 BUN 10 Creatinine 0.68 L Estim Creat Clear Calc 174.35 Est GFR (MDRD) Af Amer 174 Est GFR (MDRD) Non-Af 144 BUN/Creatinine Ratio 14.6 Glucose 144 H Calcium 8.2 L Total Bilirubin 0.30 AST 50 H ALT 104 H Alkaline Phosphatase 103 Total Protein 6.0 L Albumin 2.5 L Globulin 3.5 Albumin/Globulin Ratio 0.7 L Vancomycin Trough 14.2 - Other Studies Radiology: [] reviewed Other Studies: [] Route of nutrition/ use of supplements: [] Nutritional Intake: [] IV Site: [] Dhaliwal Catheter: [] - Physical Exam General: Alert, Oriented x3, Cooperative, No apparent distress HEENT: Atraumatic, PERRLA, EOMI Neck: Supple, No Nodes Lungs: Clear to auscultation, Normal air movement Cardiovascular: Regular rate, Regular Rhythm Abdomen: Bowel Sounds Present, Soft, Non Tender, Non-Distended Extremities: No edema Skin: - - Fading redness on RLE with small scabbed lesion on R lateral thigh. Tiny papule at base of penis, no other abnormality seen. IV Site: Peripheral, without redness Musculoskeletal: No Tenderness to Palpation of Joints or Extremities Neurological: Cranial nerves II-XII grossly intact - Assessment/Plan Antibiotics: [] Assessment/Plan: [] RLE cellulitis - suspect strep infection. No signs of sepsis. Much improved on vanc/zosyn. Ok for d/c home on po duricef 500mg bid for 5 more days. Genital papule - low suspicion for HSV. May just be ingrown hair. h/o IVDU - reports heroin use is in remission Thank you for this consultation. D/w director case management. After I saw him, pt left AMA with IVs in place and no discharge rx.
--- NOTE | 2017-03-28 14:05 | PCM.DC.SUM ---
Discharge Date and Diagnosis Date of Admission: 03/25/17 Date of Discharge: 03/28/17 - Primary Discharge Diagnosis #1 right lower extremity cellulitis. #2 penile lesions, unclear etiology. - Secondary Discharge Diagnosis Chronic Problems Polysubstance (excluding opioids) dependence, daily use (Chronic) Hospital Course and Treatment Imaging Results: Clinical Impression(s) from Imaging Studies Brain CT 03/25/17 17:01 IMPRESSION: No acute intracranial findings. Negative for hemorrhage, hematoma or mass density. Negative for demarcation of a new infarct zone. Mild atrophy for age. Moderate areas of mucosal thickening in the inferior right maxillary sinus. Normal skull. Electronically Signed: Anita Cobb MD at 18:21 EST , Service support , Dr. Vallejo, infectious disease. Operations: None Procedures: None Summary of Care Provided: Patient seen and examined on the day of discharge. Erythema and swelling of the right lower extremity significantly improved. Patient remained afebrile. I informed the patient that he is ready to go home but I would wait for the infectious disease doctors about the antibiotic recommendations. Shortly after, the nurse called me and she has had patient just left the hospital AGAINST MEDICAL ADVICE. - Physical Exam General: Alert, Oriented x3, Cooperative, No apparent distress. HEENT: Atraumatic, PERRLA, EOMI. Neck: Supple, No JVD, Negative Carotid Bruits, Trachea Midline, Thyroid Normal. Lungs: Clear to auscultation, Normal air movement, No rhonchi, No wheeze, No rales. Cardiovascular: Regular rate, Regular Rhythm, Normal S1, Normal S2, PMI Normal. Abdomen: Bowel Sounds Present, Soft, Non Tender, Non-Distended, No Hepato-splenomegaly. Extremities: No clubbing, No cyanosis, No edema Neurological: Neuro grossly intact Vital Signs stable. Hospital course: The patient is a 31 year old M with past history of polysubstance abuse presented to the emergency room because of right lower extremity edema, redness and pain and he was found to have acute cellulitis of the right lower extremity. Also, he was found to have penile lesions without clear etiology. He was treated with IV vancomycin and Zosyn as well as IV acyclovir. Local erythema and swelling of the right leg significantly improved. Blood work was unremarkable. Showed no growth in 48 hours. Initial wound culture revealed no growth. Herpes simplex virus culture from the arm was pending at the time when the patient left AGAINST MEDICAL ADVICE. Infection was disease consulted and recommended to discharge patient home on Duricef 500 mg p.o. twice daily for 5 days. Regarding the penile lesions, those were genital papule with low suspicion for HSV. Although patient was informed that he is being discharged home today, he left the hospital without telling anybody. Reportedly, there was a police warrant for arrest for this patient and probably that is why he left the hospital. Patient left the hospital AGAINST MEDICAL ADVICE. Home Medications: Medications to take at Discharge NK [NK] 03/25/17 Primary Care Physician: Care Physician,No Primary [Primary Care Provider] - Disposition: Against Medical Advice Minutes spent on discharge:: 32 Patient Condition:: Stable Meaningful Use Info Meaningful Use Diagnoses (Choose all that apply): None applicable Code Visit Inpatient E&M: 26603 Disch Hosp
--- NOTE | 2017-03-28 14:11 | DS.PCM_ITS ---
Discharge Date and Diagnosis Date of Admission: 03/25/17 Date of Discharge: 03/28/17 - Primary Discharge Diagnosis #1 right lower extremity cellulitis. #2 penile lesions, unclear etiology. - Secondary Discharge Diagnosis Chronic Problems Polysubstance (excluding opioids) dependence, daily use (Chronic) Hospital Course and Treatment Imaging Results: Clinical Impression(s) from Imaging Studies Brain CT 03/25/17 17:01 IMPRESSION: No acute intracranial findings. Negative for hemorrhage, hematoma or mass density. Negative for demarcation of a new infarct zone. Mild atrophy for age. Moderate areas of mucosal thickening in the inferior right maxillary sinus. Normal skull. Electronically Signed: Anita Cobb MD at 18:21 EST , Service support , Dr. Vallejo, infectious disease. Operations: None Procedures: None Summary of Care Provided: Patient seen and examined on the day of discharge. Erythema and swelling of the right lower extremity significantly improved. Patient remained afebrile. I informed the patient that he is ready to go home but I would wait for the infectious disease doctors about the antibiotic recommendations. Shortly after , the nurse called me and she has had patient just left the hospital AGAINST MEDICAL ADVICE. - Physical Exam General: Alert, Oriented x3, Cooperative, No apparent distress. HEENT: Atraumatic, PERRLA, EOMI. Neck: Supple, No JVD, Negative Carotid Bruits, Trachea Midline, Thyroid Normal. Lungs: Clear to auscultation, Normal air movement, No rhonchi, No wheeze, No rales. Cardiovascular: Regular rate, Regular Rhythm, Normal S1, Normal S2, PMI Normal. Abdomen: Bowel Sounds Present, Soft, Non Tender, Non-Distended, No Hepato- splenomegaly. Extremities: No clubbing, No cyanosis, No edema Neurological: Neuro grossly intact Vital Signs stable. Hospital course: The patient is a 31 year old M with past history of polysubstance abuse presented to the emergency room because of right lower extremity edema, redness and pain and he was found to have acute cellulitis of the right lower extremity. Also, he was found to have penile lesions without clear etiology. He was treated with IV vancomycin and Zosyn as well as IV acyclovir. Local erythema and swelling of the right leg significantly improved. Blood work was unremarkable. Showed no growth in 48 hours. Initial wound culture revealed no growth. Herpes simplex virus culture from the arm was pending at the time when the patient left AGAINST MEDICAL ADVICE. Infection was disease consulted and recommended to discharge patient home on Duricef 500 mg p.o. twice daily for 5 days. Regarding the penile lesions, those were genital papule with low suspicion for HSV. Although patient was informed that he is being discharged home today, he left the hospital without telling anybody. Reportedly, there was a police warrant for arrest for this patient and probably that is why he left the hospital. Patient left the hospital AGAINST MEDICAL ADVICE. Home Medications: Medications to take at Discharge NK [NK] 03/25/17 Primary Care Physician: Care Physician,No Primary [Primary Care Provider] - Disposition: Against Medical Advice Minutes spent on discharge:: 32 Patient Condition:: Stable Meaningful Use Info Meaningful Use Diagnoses (Choose all that apply): None applicable Code Visit Inpatient E&M: 42135 Disch Hosp
[2017-03-30 16:10] LABS: HEPATITIS B SURFACE AG Confirm. indicated (Negative); Hepatitis A AB, Total Positive (Negative); Hepatitis A IgM Antibody Negative (Negative); Hepatitis B Core AB IgM Negative (Negative); Hepatitis B Core Ab Total Negative (Negative)
[2017-03-31 03:07] LABS: HSV 1 By PCR Negative (Negative)
[2017-03-31 13:26] LABS: Hep B Surface Antibodies Non Reactive (.)
[2017-03-31 13:30] LABS: Hepatitis C Ab >11.0 s/co ratio (0.0-0.9)
[2017-03-31 13:37] LABS: HSV 2 By PCR Negative (Negative); V-Zoster Virus Acute IgM < 0.91 index (0.00-0.90)
[2017-04-01 03:48] LABS: Rapid Plasmin Reagin (RPR) NONREACTIVE (NONREACTIVE)
== END 2017-03-28 10:31 | disposition left against medical advice (07) | DRG 603 ==
LOC: ED 15:06 → MS3 16:37
PROVIDERS: Family Medicine; Admitting Provider Internal Medicine; Emergency Provider Emergency Medicine; Visit Provider Hospitalist
DX: L03.115 Cellulitis of right lower limb (principal); F19.20 Other psychoactive substance dependence, uncomplicated; R73.9 Hyperglycemia, unspecified; N48.9 Disorder of penis, unspecified; Z72.0 Tobacco use
CPT/HCPCS: 36415; 36600; 70450; 80048; 80053; 80076; 80202; 80307; 80320; 82803; 83036; 83605; 85025; 85610; 85652; 85730; 86140; 86592; 86703; 86704; 86705; 86706; 86708; 86709; 86787; 86803; 87040; 87070; 87205; 87255; 87340; 87529; 87640; 93971; 97802; 99285; 99406; J7030; J7040; J7050; A4216; G0480; J2310

== ENCOUNTER 2017-11-08 23:39 | Emergency (ER) | payer SELFPAY ==
[2017-11-08 23:40] VITALS: BP 164/89; PULSE 74; RESP 16; TEMP 37.2; O2SAT 97; BMI 30.6
--- NOTE | 2017-11-09 01:00 | EKG12_ITS ---
Test Reason : EDEMA Blood Pressure : / mmHG Vent. Rate : 097 BPM Atrial Rate : 097 BPM P-R Int : 152 ms QRS Dur : 098 ms QT Int : 360 ms P-R-T Axes : 055 022 039 degrees QTc Int : 457 ms Normal sinus rhythm Cannot rule out Inferior infarct , age undetermined Abnormal ECG Confirmed by NATALIE NARANJO, GEMINI ([id number]), editor managing newspaper LAURIE FRAGA ([id number]) on 11/10/2017 1:18:43 PM Referred By: RAMSEY Confirmed By:GEMINI ESTRADA MD
--- NOTE | 2017-11-09 01:01 | CT_ITS ---
STUDY: CTA CHEST REASON FOR EXAM: Male, 32 years old. Lower leg swelling. History of pulmonary embolism. RADIATION DOSAGE (If Supplied By Facility): CTDIvol = ( 16.42 ) mGy, DLP = ( 745.48 ) mGycm TECHNIQUE: The examination was performed with the intravenous administration of 100ML ml of Isovue 370 contrast material. Post-processing of the angiographic images was performed, with multiplanar reformation and 3D reconstruction. Individualized dose optimization techniques were used for this CT. COMPARISON: None. FINDINGS: There is limited enhancement of the main pulmonary artery and right and left pulmonary arteries. There is limited enhancement of the bilateral peripheral pulmonary arteries. Small pulmonary embolism is difficult to exclude on this exam. Normal thoracic aorta and visualized great vessels. There is no demonstrated aortic dissection. Normal heart and pericardium. Normal mediastinum. Normal hilar regions. Normal visualized trachea and bronchi. The lungs are well expanded. There are no pulmonary infiltrates. There is mild stranding in the left lower lobe which could be due to atelectasis or scarring. There are no pleural effusions. Normal chest wall structures. Normal osseous structures. The visualized portions of the upper abdomen demonstrate mild splenomegaly. CT/CTA Chest W/WO Contrast IMPRESSION: Markedly limited examination due to suboptimal enhancement of the central and the peripheral branches of pulmonary arteries. Atelectatic changes or scarring in the left lower lobe. No infiltrate is seen. Mild splenomegaly. Electronically Signed: Desmond Cummins MD at 2:37 EDT Tel , Service support ,
[2017-11-09] MEDS: 0.9% Normal Saline 1,000 ML 1000 ML IV (01:19)
[2017-11-09 01:39] LABS: Absolute Lymphocyte Count 1.81 X10^3/ul (0.83-4.51); Absolute Neutrophil Count 3.9 X10^3/uL (2.0-7.7); Basophil# 0.01 X10^3/uL; Basophil% 0.2 % (0-1); Eosinophil# 0.16 X10^3/uL; Eosinophils% 2.4 % (0-5); Hematocrit 42.5 % (40-54); Hemoglobin 13.8 g/dl (13.0-16.5); Lymphocyte # 1.81 X10^3/ul (4.0); Lymphocyte % 27.3 % (19-41); Mean Corp Hgb Conc 32.5 g/gl (32-36); Mean Corpuscular Hgb 28.5 pg (27.0-32.0); Mean Corpuscular Volume 87.6 fL (80-94); Mean Platelet Vol. 11.2 fl (6.2-12.0); Monocyte# 0.76 X10^3/uL; Monocyte% 11.5 % (0-10); Neutrophil # 3.88 X10^3/uL (2.7-7.7); Neutrophil % 58.4 % (47-70); Platelet Count 265 K/mm3 (150-450); RBC Distribution Width CV 13.2 % (11.6-14.6); RBC Distribution Width SD 42.2 fl (35.1-43.9); Red Blood Count 4.85 M/mm3 (4.6-6.2); White Blood Count 6.6 K/mm3 (4.4-11.0)
[2017-11-09 01:45] LABS: Anion Gap 9 (5-15); BUN 8 mg/dL (7-18); BUN/Creat Ratio 9.4 RATIO (10-20); Chloride 105 mmol/L (98-107); Creatinine, Serum 0.86 mg/dL (0.70-1.30); EST Glomerular Filtration Rate 111 mL/min (>60); Est Glom Filt Rate - Afr Amer 134 mL/min (>60); Glucose 111 mg/dL (74-106); POSITIVE COUNT NO; POSITIVE DIFFERENTIAL NO; POSITIVE MORPHOLOGY NO; Potassium 3.4 mmol/L (3.5-5.1); Sodium Level 141 mmol/L (136-145)
--- NOTE | 2017-11-09 02:54 | ED.VISSUMM ---
- ER Visit Summary Date of Service: 11/09/17 Chief Complaint: Bilateral leg pain History of Present Illness: The patient is a 32 M who presents with bilateral leg pain. It is been present for about 3 days. He notes that 2 days ago he had sharp chest pain which was worse with breathing but that this has since resolved. He has also noticed some redness of his bilateral legs. He does have a history of bilateral lower extremity cellulitis. However he also has a history of prior DVT following surgery for a femur fracture. Physical Examination: Afebrile vitals are stable Moist mucous membranes Heart regular rate and rhythm Lungs are clear Abdomen soft Patient does have 1+ pitting symmetric edema of the lower extremities he is not really tender to palpation there is erythema and warmth consistent with cellulitis and some small open wounds on the lower legs as well. He has palpable dorsalis pedis pulses Test Results: EKG shows sinus rhythm at a rate of 97. CBC BMP troponin unremarkable. CTA of the chest is markedly limited, there is no infiltrate. Emergency Department Course and Treatment: Patient was given Ancef and vancomycin. Based on initial examination my clinical suspicion was that this was more likely cellulitis. However he does have a prior history of DVT and also complained of pleuritic chest pain a couple of days ago. CTA is essentially nondiagnostic for pulmonary embolism. I explained all this to the patient. Based on this I recommended hospitalization for IV hydration and either repeat CTA of the chest or venous duplexes. Patient refuses admission. We did discuss risks and benefits. I discussed the risks of leaving AGAINST MEDICAL ADVICE including worsening of condition or . Patient vocalized understanding. He continued to refuse admission and wishes to leave AGAINST MEDICAL ADVICE. As an alternative I have ordered a dose of subcutaneous Lovenox here and for venous duplexes of the legs tomorrow. We will also prescribe oral antibiotics for cellulitis. He was given a referral to Dr. Elkins who is next on the no doc PCP referral list. She is welcome to and should return for any new or worsening symptoms. Treatment Plan: [] Disposition: Discharge Impression: Cellulitis Chest pain This note was generated with [employer] dictation software. It may contain incorrect words, spelling, and punctuation that were not noted in review of the chart prior to signing ED Disposition - Plan for ED Patient: Chief Complaint: Edema Referrals: Care Physician,No Primary [Primary Care Provider] -
[2017-11-09] MEDS: Cefazolin 2 GM in 0.9% Normal Saline 100 ML IV (02:55)
--- NOTE | 2017-11-09 02:58 | ED.DEP ---
ED Disposition - Plan for ED Patient: Chief Complaint: Edema Instructions: ED Leg Swelling Bilateral, ED Chest Pain Atypical Unkn Cause Prescriptions: Cephalexin [Keflex] 500 mg PO Q6 #40 cap Referrals: Care Physician,No Primary [Primary Care Provider] - Page Elkins DO [STAFF PHYSICIAN] -
[2017-11-09 03:48] VITALS: PULSE 113; RESP 18; O2SAT 96
--- NOTE | 2017-11-09 03:51 | ED.RN ---
patient refused lovenox injection. patient advised concerns for DVT. Patient aware and not concerned at this time. Patient received most of IV antibiotics patient no longer wants to wait for medication to infuse at this time. Remain doses less then 20 ml of medication
== END 2017-11-09 03:53 | disposition left against medical advice (07) ==
PROVIDERS: Emergency Provider Emergency Medicine
DX: L03.116 Cellulitis of left lower limb (principal); L03.115 Cellulitis of right lower limb; R07.9 Chest pain, unspecified; Z86.718 Personal history of other venous thrombosis and embolism; Z86.711 Personal history of pulmonary embolism; Z72.0 Tobacco use
CPT/HCPCS: 71275; 80048; 84484; 85025; 93005; 96365; 96366; 96368; 99285; J7030; Q9967; A4216